=== PATIENT | female | born 1980 | race Caucasian/White ===

== ENCOUNTER 2020-09-06 11:29 | Emergency (ER) | payer MEDICARE, SELFPAY ==
[2020-09-06 11:42] VITALS: BP 184/94; PULSE 87; RESP 18; TEMP 36.3; O2SAT 98; BMI 48.3
--- NOTE | 2020-09-06 11:56 | ED.GENADULT ---
HPI - General Adult General Chief complaint: Dental/Oral Stated complaint: suspects jaw infection Time Seen by Provider: 09/06/20 11:52 Source: patient Mode of arrival: Ambulatory Limitations: no limitations History of Present Illness HPI narrative: Patient is a 39-year-old female who is new to the area who is here for evaluation of several days/week of left upper jaw discomfort. She thinks that she potentially has a tooth infection. She does that she has bad teeth but does not have a dental provider in this area. She also had an episode of vomiting this morning. There is no skin changes over her face. Related Data Previous Rx's Medication Instructions Recorded penicillin V potassium 500 mg PO QID 7 Days #28 tab 09/06/20 Allergies Allergy/AdvReac Type Severity Reaction Status Date / Time pregabalin [From Lyrica] Allergy Intermediate Hallucinati Verified 09/06/20 11:42 ng topiramate Allergy Intermediate Hallucinati Verified 09/06/20 11:42 ng Review of Systems Constitutional Constitutional: Denies fever(s) and Denies headache(s) Eyes Eyes: Denies change in vision ENT Ears, Nose, Mouth, and Throat: Denies headache(s), Denies sore throat and Denies throat swelling Comments: Dental pain Cardiovascular Cardiovascular: Denies dyspnea Respiratory Respiratory: Denies cough and Denies dyspnea Gastrointestinal Gastrointestinal: Reports vomiting Integumentary/Breasts Skin/Breast: Denies lesions and Denies rash Neurologic Neurologic: Denies behavioral changes and Denies headache(s) Psychiatric Psychiatric: Denies behavioral changes Hematologic/Lymphatic On Anticoagulants: No Allergic/Immunologic Allergic/Immunologic: Denies urticaria and Denies throat swelling Patient History Medical History Patient denies medical problems Social History lives independently: Yes Exam Initial Vital Signs Initial Vital Signs: Vital Signs Temperature 97.4 F L 09/06/20 11:42 Pulse Rate 87 09/06/20 11:42 Respiratory Rate 18 09/06/20 11:42 Blood Pressure 184/94 H 09/06/20 11:42 Pulse Oximetry 98 09/06/20 11:42 Const General: cooperative and comfortable Limitations: mental status not altered HENMT Head: normal to inspection and normocephalic Ears: TM's normal bilaterally Nose: external nose normal Face and sinus: normal facial exam Mouth: lip normal and tongue normal Teeth and gingiva: caries and poor dentition Throat: posterior oropharynx normal and tonsils normal Eyes Visual Manriquez: normal visual manriquez by confrontation Neck Lymphatic: No lymphadenopathy Resp Effort & Inspection: normal respiratory effort Auscultation: clear to auscultation bilaterally Cardio Rate: regular rate Rhythm: regular rhythm Skin Lesions: no lesions Rashes: no rashes Neuro General: patient alert, patient awake and patient oriented x3 Extrem General: capillary refill normal Psych Appearance: grossly normal and well kempt Course Orders Ordered: Discontinued Medications Penicillin V Potassium (Penicillin Vk 250 Mg Tablet) 500 mg PO NOW ONE Stop: 09/06/20 11:57 Vital Signs Vital signs: Vital Signs - 8 hr 09/06/20 11:42 Temperature 97.4 F L Pulse Rate 87 Respiratory Rate 18 Blood Pressure 184/94 H Pulse Oximetry 98 Medical Decision Making MDM Narrative Medical decision making narrative: She does have very poor dentition with multiple caries and multiple missing teeth. The tooth that seems to be causing her discomfort is just a root. There is no defined abscess seen on the exam today. She has no lymphadenopathy. No problems breathing. No problem swallowing. Will start her on antibiotics. A prescription was sent to the pharmacy of her choice after she received her 1st dose here in the ER. She was informed that she needs to make contact with a dentist for definitive treatment. She was given return precautions and follow-up instructions. She expressed understanding and agreement. Discharge Plan Departure Patient Disposition: Home Clinical Impression: Toothache Instructions: DI for Dental Pain Activity Restrictions/Additional Instructions: Recommend that you take the antibiotics as directed. It is important that you may contact and follow up with the dentist as definitive treatment for your issues are going to require their expertise. A prescription for the remainder was electronically transmitted to the pharmacy of your choice. You can also take Tylenol/ibuprofen for discomfort. Return to the emergency department for any new or worsening symptoms Prescriptions: New penicillin V potassium 500 mg tablet 500 mg PO QID 7 Days Qty: 28 RF: 0
[2020-09-06] MEDS: PENICILLIN VK 250 MG TABLET 500 MG PO (12:15)
== END 2020-09-06 12:22 | disposition home or self-care (01) ==
PROVIDERS: Emergency Provider Emergency Medicine
DX: K08.89 Other specified disorders of teeth and supporting structures (principal); R11.10 Vomiting, unspecified
CPT/HCPCS: 99283

== ENCOUNTER 2020-11-19 19:42 | Emergency (ER) | payer MEDICARE, MEDICAID, SELFPAY ==
[2020-11-19 19:59] VITALS: BP 172/105; PULSE 101; RESP 20; TEMP 37.2; O2SAT 97; BMI 47.8
[2020-11-19 20:25] LABS: COVID19 -Nasal RAPID Negative (Negative)
--- NOTE | 2020-11-19 22:10 | DI.RAD.S_ITS ---
PROCEDURE: XR CHEST 2V INDICATIONS: cough TECHNIQUE: 2 views of the chest were acquired. COMPARISON: None. FINDINGS: Surgical changes and devices: None. Lungs and pleura: Lungs are clear. No pleural effusions or pneumothorax. Mediastinum: Mediastinal contours are normal. Heart size is normal. Bones and chest wall: No suspicious bony abnormalities. Soft tissues appear unremarkable. IMPRESSION: No acute cardiopulmonary findings Dictated by: Benjamin Soto M.D. on 11/20/2020 at 6:47 Approved by: Benjamin Soto M.D. on 11/20/2020 at 6:48
[2020-11-19 22:27] VITALS: PULSE 86; O2SAT 99
[2020-11-19 22:29] VITALS: BP 172/94; PULSE 83; O2SAT 96
[2020-11-19 22:30] VITALS: BP 171/98; PULSE 83; O2SAT 97
[2020-11-19] MEDS: BENZONATATE 100 MG CAPSULE PO (22:47)
--- NOTE | 2020-11-20 05:33 | ED_ITS ---
HPI - URI/Sore Throat General Chief Complaint: Upper Respiratory Symptoms Stated Complaint: Coughing/Poss Covid symptoms Time Seen by Provider: 11/19/20 19:56 Source: patient Mode of arrival: Ambulatory Limitations: no limitations History of Present Illness HPI Narrative: 40-year-old woman presents with 24 hours of symptoms including yesterday feeling that she was car sick which was very unusual for her. She then developed a dry throat general malaise feeling significantly exhausted, over the last number of hours increasing coughing with chest pain and tightness. She notes that she had COVID in December and was concerned that all of the symptoms were similar and comes in for re-evaluation. She does not complain of vomiting, diarrhea abdominal pain flank pain or dysuria. Related Data Previous Rx's Medication Instructions Recorded benzonatate 100 mg capsule 100 mg PO BID-TID PRN #14 cap 11/19/20 Allergies Allergy/AdvReac Type Severity Reaction Status Date / Time pregabalin [From Lyrica] Allergy Intermediate Hallucinati Verified 11/19/20 19:59 ng topiramate Allergy Intermediate Hallucinati Verified 11/19/20 19:59 ng Review of Systems Review of Systems Narrative: Remainder of complete review of systems is otherwise unremarkable except for that included in the HPI. Patient History Medical History Patient denies medical problems Pneumonia due to COVID-19 virus Social History lives independently: Yes Smoking Status: Never smoker Smoking Status: Never smoker alcohol intake frequency: holidays/special occasions only Substance Use Type: does not use Exam Narrative Exam Narrative: General: no acute distress. Able to give a complete and coherent history. Well-nourished well-developed HEENT: Moist mucous membranes, normal sclera with reactive pupils, Neck: No JVD, supple Respiratory: Mild cough but Lungs are clear to auscultation, no wheezing no rales no rhonchi. Full and symmetrical air movement Cardiac: Regular rate and rhythm no murmurs no bruits Abdomen: Soft, nontender, good bowel tones, no flank pain Skin: Warm and dry, no rashes Neurologic: Grossly neurologically intact with no obvious asymmetries or abnormalities Extremities: No trauma, well perfused Psych: Cooperative, appropriate insight and affect Initial Vital Signs Initial Vital Signs: Vital Signs Temperature 98.9 F 11/19/20 19:59 Pulse Rate 101 H 11/19/20 19:59 Respiratory Rate 20 11/19/20 19:59 Blood Pressure 172/105 H 11/19/20 19:59 Pulse Oximetry 97 11/19/20 19:59 Course Orders Ordered: ED Orders 11/19/20 22:10 Chest [XR chest 2V] Stat Discontinued Medications Benzonatate (Benzonatate 100 Mg Capsule) 100 mg PO NOW ONE Stop: 11/19/20 22:40 Last Admin: 11/19/20 22:47 Dose: 100 mg Documented by: EARLENE Vital Signs Vital signs: Vital Signs - 8 hr 11/19/20 22:27 11/19/20 22:29 11/19/20 22:30 Pulse Rate 86 83 83 Blood Pressure 172/94 H 171/98 H Pulse Oximetry 99 96 97 MDM - URI/Sore Throat Lab Data Labs: Lab Results 11/19/20 Range/Units 19:47 SARS-CoV-2 (PCR) Negative (Negative) MDM Narrative Medical decision making narrative: 40-year-old woman presents with upper respiratory symptoms. COVID test is negative and she recently had COVID pneumonia in December of 2019. There is no evidence of wheezing, bacterial pneumonia, acute coronary syndrome, bacterial pharyngitis. Reassurance is given. We did briefly discuss her significantly elevated blood pressure here in the emergency department. She notes that it has been elevated when she is feeling unwell that typically when she is not anxious or hurting it seems to be doing fine. Asked that she check her blood pressure and review this with her primary care physician follow-up. She is safe for home discharge Discharge Plan Departure Patient Disposition: Home Clinical Impression: Upper respiratory infection, Elevated blood pressure reading Instructions: DI for Viral Upper Respiratory Infection -- Adult Activity Restrictions/Additional Instructions: Thank you for coming in You do not have COVID again You do have some type of mild upper respiratory infection. There is no wheezing and no signs of a bacterial pneumonia. I have given you a prescription for Tessalon Perles to help with the cough. Ibuprofen and Tylenol can also be helpful. Prescription for the Tessalon/benzonatate was electronically transmitted to [facility] in [place] Your blood pressure was elevated in the emergency department today. Please check your readings outside of the emergency department when you are feeling better. Keep track of these numbers and review with her primary care physician. Elevated blood pressure readings at 172/105 per concerning for essential hypertension that may need to be treated. If you find that things are getting worse, please return to the ER Prescriptions: New benzonatate 100 mg capsule 100 mg PO BID-TID PRN (Reason: cough) Qty: 14 RF: 0
== END 2020-11-19 22:58 | disposition home or self-care (01) ==
PROVIDERS: Emergency Provider Emergency Medicine
DX: J06.9 Acute upper respiratory infection, unspecified (principal); R07.9 Chest pain, unspecified; Z20.822 Contact with and (suspected) exposure to COVID-19; R03.0 Elevated blood-pressure reading, without diagnosis of hypertension; Z86.16 Personal history of COVID-19
CPT/HCPCS: 71046; 87635; 99283; C9803

== ENCOUNTER → 2021-05-12 10:58 | Outpatient (CLI) | payer MEDICARE, MEDICAID, SELFPAY ==
--- NOTE | 2021-05-12 11:00 | DI.RAD.S_ITS ---
PROCEDURE: XR LUMBAR SPINE MIN 4V INDICATIONS: lumbar spondylosis and radiculopathy to left side TECHNIQUE: 5 views of the lumbar spine acquired, including flexion and extension views. COMPARISON: None. FINDINGS: Bones: 5 nonrib-bearing vertebrae are present. Grade 1 isthmic spondylolisthesis at the L5-S1 level. Multilevel disc degeneration, most notably and moderate at the L4-L5 and L5-S1 levels. Moderate L4-L5 and L5-S1 facet joint arthropathy. No vertebral body compression fractures. No suspicious bony lesions. Soft tissues: Overlying bowel gas pattern is normal. No suspicious soft tissue calcifications. IMPRESSION: 1. Multilevel spondylosis and grade 1 isthmic spondylolisthesis at the L5-S1 level. Dictated by: Alexander Dalton Brian Interpreted: Hardik Roman MD on 05/12/2021 at 11:26 Transcribed by: ARUN on 05/12/2021 at 11:27 Approved by: Hardik Roman M.D. on 05/12/2021 at 15:14
== END ==
PROVIDERS: PCP Family Medicine; Referring Provider Family Medicine; Visit Provider Family Medicine
DX: M47.26 Other spondylosis with radiculopathy, lumbar region (principal); M43.17 Spondylolisthesis, lumbosacral region
CPT/HCPCS: 72100

== ENCOUNTER → 2022-02-21 12:20 | Outpatient (CLI) | payer MEDICARE, MEDICAID, SELFPAY | PROVIDERS: PCP Family Medicine; Referring Provider Physical Medicine & Rehabilitation; Visit Provider Physical Medicine & Rehabilitation | DX: M43.17 Spondylolisthesis, lumbosacral region (principal); M47.816 Spondylosis without myelopathy or radiculopathy, lumbar region ==

== ENCOUNTER → 2022-03-02 09:20 | Outpatient (CLI) | payer MEDICARE, MEDICAID, SELFPAY ==
[2022-03-02 10:59] LABS: Add Manual Diff / Slide Review NO; Basophils Absolute Auto 0 /uL (0-100); Basophils Percent Auto 0.2 % (0-2); Eosinophils Absolute Auto 200 /uL (0-450); Eosinophils Percent Auto 1.9 % (2-4); Hematocrit 41.9 % (36-46); Hemoglobin 14.5 g/dL (12.0-16.0); Lymphocytes Absolute Auto 3700 /uL (1100-4500); Lymphocytes Percent Auto 39.9 % (25-40); Mean Corpuscular HGB Conc 34.6 % (30-36); Mean Corpuscular Hemoglobin 30.8 PG (26-34); Mean Corpuscular Volume 89.2 fL (80-100); Monocytes Absolute Auto 500 /uL (0-900); Monocytes Percent Auto 5.4 % (3-14); Neutrophils Absolute Auto 4900 /uL (1500-7000); Neutrophils Percent Auto 52.6 % (50-75); Platelet Count 348 X10^3/uL (150-400); Red Cell Distribution Width 13.4 % (11.6-14.8); White Blood Cell Count 9.3 X10^3/uL (4.5-11.0)
[2022-03-02 11:07] LABS: Hemoglobin A1C% w Est Avg Glu 5.4 % (4.0-6.0)
[2022-03-02 11:57] LABS: Alanine Aminotransferase 47 IU/L (<35); Albumin 4.2 g/dL (3.5-5.0); Albumin Globulin Ratio 1.2 (1.0-2.8); Alkaline Phosphatase 72 U/L (38-126); Aspartate Aminotransferase 55 IU/L (14-36); BUN Creatinine Ratio 14.5 (6-22); Bilirubin Total 0.6 mg/dL (0.2-1.3); Blood Urea Nitrogen 10 mg/dL (7-17); Calcium 8.9 mg/dL (8.4-10.2); Carbon Dioxide 24 mmol/L (22-32); Chloride 102 mmol/L (98-107); Cholesterol 232 mg/dL (140-199); Estimated Glomerular Filt Rate > 60 mL/min (>60); Globulin 3.4 g/dL (1.7-4.1); Glucose 98 mg/dL (70-100); HDL Cholesterol 40 mg/dL (40-60); HEMOLYSIS < 15 (0-50); LDL Cholesterol Calculated 150 mg/dL (<100); Potassium 4.5 mmol/L (3.4-5.1); Sodium 136 mmol/L (137-145); Total Protein 7.6 g/dL (6.3-8.2); Triglycerides 208 mg/dL (35-150)
[2022-03-02 12:26] LABS: TSH w/ Reflex to FT4 1.32 uIU/mL (0.47-4.68)
== END ==
PROVIDERS: PCP Family Medicine; Referring Provider Family Medicine; Visit Provider Family Medicine
DX: E78.2 Mixed hyperlipidemia (principal); M43.17 Spondylolisthesis, lumbosacral region; E78.5 Hyperlipidemia, unspecified; G89.4 Chronic pain syndrome; I10 Essential (primary) hypertension; M47.816 Spondylosis without myelopathy or radiculopathy, lumbar region; F32.A Depression, unspecified; F41.9 Anxiety disorder, unspecified; R74.8 Abnormal levels of other serum enzymes
CPT/HCPCS: 80053; 80061; 83036; 84443; 85025